=== PATIENT | female | born 1955 | race Caucasian/White ===

== ENCOUNTER → 2022-07-21 | Outpatient (CLI) | payer OTHER, SELFPAY ==
[2020-07-20 10:04] VITALS: BMI 41.0
--- NOTE | 2022-07-21 08:00 | CT_ITS ---
Examination: CT of the right lower extremity. TECHNIQUE: Multiple axial images of the right hip, knee and ankle were obtained. Reformatted sagittal and coronal images were obtained and reviewed. Individualized dose optimization techniques were used for this CT. COMPARISON: None FINDINGS: There are mild degenerative changes of the hip characterized by joint space narrowing and subchondral sclerosis. There are vascular calcifications visualized. There are moderate to severe degenerative changes of the medial compartment of knee characterized by joint space narrowing, subchondral sclerosis and marginal osteophytes. There are moderate degenerative changes of the lateral compartment. There are mild degenerative changes of the patellofemoral joint as well. There are degenerative changes of the mid and hindfoot as well. There is a plantar calcaneal enthesophyte. There is an additional enthesophyte arising from the posterior calcaneus at the Achilles tendon insertion site. CT/Extremity Lower without Contra IMPRESSION: Degenerative changes throughout the right lower extremity, most pronounced within the knee. Electronically Signed: Zuleyka Ramírez MD at 9:23 EDT ,
--- NOTE | 2022-07-21 08:02 | EKG12_ITS ---
Test Reason : PRE OP Blood Pressure : / mmHG Vent. Rate : 072 BPM Atrial Rate : 072 BPM P-R Int : 170 ms QRS Dur : 080 ms QT Int : 398 ms P-R-T Axes : 058 044 055 degrees QTc Int : 435 ms Normal sinus rhythm Low voltage QRS Borderline ECG Confirmed by ARGELIA BARRIOS, JOANIE ([id number]), fan mail editor ALEXANDER MARTIN ([id number]) on 07/24/2022 9:30:20 AM Referred By: Adams Dobbs Confirmed By:JOANIE STOUT MD
[2022-07-21 08:53] LABS: Absolute Lymphocyte Count 2.51 X10^3/uL (0.83-4.51); Absolute Neutrophil Count 4.5 X10^3/uL (2.0-7.7); Basophil# 0.06 X10^3/uL; Basophil% 0.8 % (0-1); Eosinophil# 0.21 X10^3/uL; Eosinophils% 2.7 % (0-5); Hematocrit 35.7 % (37-47); Hemoglobin 12.1 g/dL (12.0-15.0); Lymphocyte # 2.51 X10^3/ul (0.83-4.51); Lymphocyte % 31.8 % (19-41); Mean Corp Hgb Conc 33.9 g/dL (32-36); Mean Corpuscular Hgb 32.8 pg (27.0-32.0); Mean Corpuscular Volume 96.7 fL (81-99); Mean Platelet Vol. 10.9 fl (6.2-12.0); Monocyte# 0.57 X10^3/uL; Monocyte% 7.2 % (0-10); NRBC Flagged by Analyzer 0 % (0-5); Neutrophil # 4.52 X10^3/uL (2.7-7.7); Neutrophil % 57.1 % (47-70); Platelet Count 295 K/mm3 (150-450); RBC Distribution Width CV 12.2 % (11.6-14.6); RBC Distribution Width SD 43.2 fl (35.1-43.9); Red Blood Count 3.69 M/mm3 (4.2-5.4); White Blood Count 7.9 K/mm3 (4.4-11.0)
[2022-07-21 09:20] LABS: Albumin, Serum 3.4 g/dL (3.2-5.0); Anion Gap 6 (5-15); BUN 18 mg/dL (7-18); BUN/Creat Ratio 28.8 RATIO (10-20); Calcium,Total 8.9 mg/dL (8.5-10.1); Chloride 105 mmol/L (98-107); Creatinine, Serum 0.62 mg/dL (0.55-1.02); EST Glomerular Filtration Rate 102 mL/min (>60); Est Glom Filt Rate - Afr Amer 123 mL/min (>60); Glucose 104 mg/dL (74-106); Hemoglobin A1c 5.8 % (3.8-5.6); Sodium Level 136 mmol/L (136-145)
== END | disposition home or self-care (01) ==
PROVIDERS: Physician Assistant; PCP Family Medicine; Referring Provider Orthopaedic Surgery; Visit Provider Orthopaedic Surgery
DX: Z01.818 Encounter for other preprocedural examination (principal); Z01.810 Encounter for preprocedural cardiovascular examination; M17.11 Unilateral primary osteoarthritis, right knee
CPT/HCPCS: 36415; 73700; 80048; 82040; 83036; 85025; 93005